=== PATIENT | female | born 1965 | race Caucasian/White ===

== ENCOUNTER → 2016-06-12 | Outpatient (CLI) | payer OTHER | LOC: FIMAGING 15:54 | DX: Z12.31 Encounter for screening mammogram for malignant neoplasm of breast (principal); Z80.3 Family history of malignant neoplasm of breast | CPT/HCPCS: G0202 ==

== ENCOUNTER → 2017-07-02 | Outpatient (CLI) | payer OTHER | LOC: FIMAGING 15:48 | PROVIDERS: ATTEND Nurse Practitioner Adult Health | DX: Z12.31 Encounter for screening mammogram for malignant neoplasm of breast (principal); Z80.3 Family history of malignant neoplasm of breast ==

== ENCOUNTER → 2017-07-11 | Outpatient (CLI) | payer OTHER | LOC: BMCIMAGING 10:37 | PROVIDERS: ATTEND Nurse Practitioner Adult Health | DX: N60.02 Solitary cyst of left breast (principal) ==